=== PATIENT | female | born 1955 | race Caucasian/White ===

== ENCOUNTER 2017-06-02 09:53 | Emergency (ER) | payer OTHER ==
[~2017-06-02] VITALS: Ht 152.4 cm; Wt 108.9 kg
[~2017-06-02 09:53] MED LIST: ALBUTEROL2.5 MG/3 M IH; AMARIL; AMARYL; AMLODIPINE BESYL5 MG; CLARITIN PO; GEMFIBROZIL600 MG; GLIMEPIRIDE4 MG; HYZAAR 100-121 UDTAB PO; HYZAAR 100-251 UDTAB PO; LANTUS100 U/ML; NORVASC 5MG TAB PO; PAXIL20 MG PO; PRILOSEC20 MG; PROVENTIL HFA6.7 GM; SIMVASTATIN40 MG; SINGULAIR10 MG PO; SYNTHROID75 MCG; ZITHROMAX500 MG PO
[2017-06-02] MEDS ORDERED: IPRAT-ALBUT 0.5-3 ML IH (12:42)
[2017-06-02] MEDS ORDERED: PROMETH-CODEIN 65 ML PO (12:42)
[2017-06-02] MEDS ORDERED: BUDESONIDE0.5 MG/2 M IH (12:42)
[2017-06-02] MEDS ORDERED: ZITHROMAX200 MG PO (12:42)
[2017-06-02] MEDS ORDERED: MUCINEX DM ER1 EAC1 PO (12:42)
[2017-06-02] MEDS ORDERED: MEDROLPACK PO (12:42)
== END 2017-06-02 12:50 | disposition home or self-care (01) ==
LOC: ER 09:53
DX: J44.9 Chronic obstructive pulmonary disease, unspecified (principal)

== ENCOUNTER 2018-06-28 00:34 | Inpatient (IN) | payer OTHER ==
[~2018-06-28] VITALS: Ht 152.4 cm; Wt 111.1 kg
[~2018-06-28 00:34] MED LIST changes: +BUDESONIDE0.5 MG/2 M IH; +IPRAT-ALBUT 0.5-3 ML IH; +MEDROLPACK PO; +MUCINEX DM ER1 EAC1 PO; +PROMETH-CODEIN 65 ML PO; +ZITHROMAX200 MG PO
[2018-06-30] MEDS ORDERED: CLARITIN10 MG PO (09:02)
[2018-07-04] MEDS ORDERED: SYMBICORT 16010.2 GM IH (16:53)
[2018-07-04] MEDS ORDERED: MEDROL4 MG PO (16:53)
[2018-07-04] MEDS ORDERED: VENTOLIN HFA18 GM IH (16:55)
== END 2018-07-04 17:16 | disposition home or self-care (01) | DRG 202 ==
LOC: ER 00:34 → SURH 09:25 → SEC-K 09:25 → SURH 11:01 → MEDJ 07-04 16:43 → SURH 07-04 17:13
PROVIDERS: ADMIT Student in an Organized Health Care Education/Training Program
PROC: 8E0ZXY6 Isolation (ICD-10-PCS; principal; 2018-06-28)
PROC: 4A033R1 Measurement of Arterial Saturation, Peripheral, Percutaneous Approach (ICD-10-PCS; 2018-06-28)
PROC: 3E0F7GC Introduction of Other Therapeutic Substance into Respiratory Tract, Via Natural or Artificial Opening (ICD-10-PCS; 2018-06-28)
DX: J45.21 Mild intermittent asthma with (acute) exacerbation (principal); J44.1 Chronic obstructive pulmonary disease with (acute) exacerbation; J45.22 Mild intermittent asthma with status asthmaticus; J09.X2 Influenza due to identified novel influenza A virus with other respiratory manifestations; R09.02 Hypoxemia; E66.01 Morbid (severe) obesity due to excess calories; E03.8 Other specified hypothyroidism; E11.65 Type 2 diabetes mellitus with hyperglycemia; I10 Essential (primary) hypertension; I51.7 Cardiomegaly; E78.2 Mixed hyperlipidemia; I87.2 Venous insufficiency (chronic) (peripheral); E11.42 Type 2 diabetes mellitus with diabetic polyneuropathy; E11.29 Type 2 diabetes mellitus with other diabetic kidney complication; R80.8 Other proteinuria

== ENCOUNTER 2019-01-02 10:23 | Outpatient (CLI) | payer OTHER ==
[~2019-01-02 10:23] MED LIST changes: +CLARITIN10 MG PO; +MEDROL4 MG PO; +SYMBICORT 16010.2 GM IH; +VENTOLIN HFA18 GM IH
== END 2019-01-02 10:34 | disposition home or self-care (01) ==
LOC: NUCLEAR 10:23
DX: I73.9 Peripheral vascular disease, unspecified (principal); I10 Essential (primary) hypertension; I87.2 Venous insufficiency (chronic) (peripheral); E89.2 Postprocedural hypoparathyroidism

== ENCOUNTER 2019-01-05 09:24 | Outpatient (CLI) | payer OTHER | END 2019-01-05 09:40 | disposition home or self-care (01) | LOC: NUCLEAR 09:24 | DX: I87.2 Venous insufficiency (chronic) (peripheral) (principal); I70.208 Unspecified atherosclerosis of native arteries of extremities, other extremity ==

== ENCOUNTER 2019-04-16 12:23 | Inpatient (IN) | payer OTHER ==
[~2019-04-16] VITALS: Ht 149.9 cm; Wt 111.1 kg
--- NOTE | 2019-04-16 12:37 | NUR ---
SE RECIBE AL PACIENTE ALERTA Y ORIENTADO EN MAI ÁNGEL ESFERAS. PACIENTE REFIERE QUE VIENE POR ASTHMA.
--- NOTE | 2019-04-16 13:46 | NUR ---
SE RECIBE PTE FEMENINA DE 64 YRS ALERTA CONCIENTE Y TRANQUILA EN COMPANIA DE FAMILIAR. PTE ES EVALUADA POR EL DR. BALDWIN QUIEN ORDENA TRATMIENTO LA CUAL SE EJECUTA POR MS DELFINA DICKENS. SE OBSERVA POR CAMBIOS.
[2019-04-23] MEDS ORDERED: LORATADINE10 MG PO (13:49)
[2019-04-23] MEDS ORDERED: LOSARTAN-HCTZ1 EACH PO (13:50)
[2019-04-23] MEDS ORDERED: XOPENEX CO1.25 MG/0. IH (13:50)
[2019-04-23] MEDS ORDERED: AMLODIPINE BESYL5 MG PO (13:50)
[2019-04-23] MEDS ORDERED: BENZONATATE200 M1 PO (13:51)
[2019-04-23] MEDS ORDERED: MONTELUKAST SOD10 MG PO (13:51)
[2019-04-23] MEDS ORDERED: SIMVASTATIN20 MG PO (13:51)
[2019-04-23] MEDS ORDERED: MUCINEX600 MG PO (13:52)
[2019-04-23] MEDS ORDERED: MEDROLPACK PO (13:52)
== END 2019-04-23 15:31 | disposition home or self-care (01) | DRG 194 ==
LOC: ER 12:23 → MEDJ 16:27
PROVIDERS: ADMIT Internal Medicine
PROC: 3E0F7GC Introduction of Other Therapeutic Substance into Respiratory Tract, Via Natural or Artificial Opening (ICD-10-PCS; 2019-04-16)
PROC: 4A033R1 Measurement of Arterial Saturation, Peripheral, Percutaneous Approach (ICD-10-PCS; 2019-04-16)
PROC: BB24ZZZ Computerized Tomography (CT Scan) of Bilateral Lungs (ICD-10-PCS; principal; 2019-04-17)
DX: J18.1 Lobar pneumonia, unspecified organism (principal); J44.1 Chronic obstructive pulmonary disease with (acute) exacerbation; J45.41 Moderate persistent asthma with (acute) exacerbation; Z99.11 Dependence on respirator [ventilator] status; I70.0 Atherosclerosis of aorta; J31.0 Chronic rhinitis; E66.01 Morbid (severe) obesity due to excess calories; E03.8 Other specified hypothyroidism; G47.33 Obstructive sleep apnea (adult) (pediatric); E11.40 Type 2 diabetes mellitus with diabetic neuropathy, unspecified; E11.65 Type 2 diabetes mellitus with hyperglycemia; Z79.4 Long term (current) use of insulin

== ENCOUNTER 2019-06-09 14:57 | Inpatient (IN) | payer OTHER ==
[~2019-06-09] VITALS: Ht 149.9 cm; Wt 111.1 kg
[~2019-06-09 14:57] MED LIST changes: +AMLODIPINE BESYL5 MG PO; +BENZONATATE200 M1 PO; +LORATADINE10 MG PO; +LOSARTAN-HCTZ1 EACH PO; +MONTELUKAST SOD10 MG PO; +MUCINEX600 MG PO; +SIMVASTATIN20 MG PO; +XOPENEX CO1.25 MG/0. IH
--- NOTE | 2019-06-09 15:25 | NUR ---
PTE ALERTA Y ORIENTADA X 3 ESFERAS QUIEN REFIERE DESDE EL PHONG COMENZO CON DOLOR DE GARGANTA Y SIENTE QUE VA A COMENZAR EL ASMA,REFIERE ESTUVO HOSPITALIZADA EN ENERO POR NEUMONIA.PTE HABLANDO EN ORACIONES COMPLETAS,SATURANDO 91%,SE UBICA EN AREA DE AU.
--- NOTE | 2019-06-09 16:49 | NUR ---
PACIENTE FEMINA ALERTA Y ORIENTADA, SE RE ORIENTA SOBRE EL TRATAMIENTO ORDENADO POR EL MEDICO, REFIERE ENETENDER. BAJO MEDIDAS ASEPTICAS SE CANALIZA EN MANO LT CON ANGIO #22 AIXA DE EDEMA Y ERITEMA. SE ANDREW MUESTRAS DE [facility]ATOR[facility] SHERINE ORDENADO Y SE ADMINISTRAN MEDICAMENTOS SHERINE ORDENADOS. ORDENES TOMADAS POR RN: MARGUERITE Y EJECUTADAS POR RN. DIXON.
[2019-06-10] MEDS ORDERED: LEVO-T88 MCG (08:05)
[2019-06-10] MEDS ORDERED: HYDROCHLOROTHIA25 MG (08:05)
[2019-06-12] MEDS ORDERED: SYMBICORT 16010.2 GM IH (14:02)
[2019-06-12] MEDS ORDERED: VENTOLIN HFA18 GM IH (14:03)
[2019-06-12] MEDS ORDERED: MORGIDOX100 MG PO (14:04)
== END 2019-06-12 14:38 | disposition home or self-care (01) | DRG 190 ==
LOC: ER 14:57 → MEDJ 19:56 → SEC-K 19:56 → MEDJ 06-10 00:35
PROVIDERS: ADMIT Internal Medicine
PROC: 3E0F7GC Introduction of Other Therapeutic Substance into Respiratory Tract, Via Natural or Artificial Opening (ICD-10-PCS; 2019-06-09)
PROC: 4A033R1 Measurement of Arterial Saturation, Peripheral, Percutaneous Approach (ICD-10-PCS; 2019-06-09)
PROC: BB24ZZZ Computerized Tomography (CT Scan) of Bilateral Lungs (ICD-10-PCS; principal; 2019-06-10)
DX: J44.1 Chronic obstructive pulmonary disease with (acute) exacerbation (principal); J18.1 Lobar pneumonia, unspecified organism; J45.22 Mild intermittent asthma with status asthmaticus; J98.11 Atelectasis; E66.01 Morbid (severe) obesity due to excess calories; R31.0 Gross hematuria; K21.9 Gastro-esophageal reflux disease without esophagitis; I10 Essential (primary) hypertension; E11.65 Type 2 diabetes mellitus with hyperglycemia; Z79.4 Long term (current) use of insulin

== ENCOUNTER 2024-09-14 15:55 | Emergency (ER) | payer OTHER ==
[~2024-09-14] VITALS: Ht 149.9 cm; Wt 99.8 kg
[~2024-09-14 15:55] MED LIST changes: +HYDROCHLOROTHIA25 MG; +LEVO-T88 MCG; +MORGIDOX100 MG PO
[2024-09-14] MEDS ORDERED: NORVASC5 MG PO (16:29)
[2024-09-14] MEDS ORDERED: ZESTORETIC 20-1 EAC1 PO (16:30)
[2024-09-14] MEDS ORDERED: HYDROCODONE/CHLORPHEN P-STIREX 5 ML ML PO STA (18:58)
[2024-09-14 19:37] LABS: BASO % 0.9 % (0.1-1.2); EOS # 0.02 (0.04-0.54); EOS % 0.2 % (0.7-7.0); HEMATOCRIT 43.1 % (34.1-44.9); HEMOGLOBIN 13.8 g/dL (11.2-15.7); LYMPH # 1.86 (1.18-3.74); MEAN CORPUSCULAR HEMOGLOBIN 25.7 pg (25.6-32.2); MONO % 11.1 % (4.7-12.5); NEUT # 8.31 (1.56-6.13); NEUT % 71.2 % (34.0-71.1); PLATELET COUNT 337 K/uL (163-369); RED BLOOD COUNT 5.37 M/uL (3.93-5.22)
[2024-09-14 20:19] LABS: COVID-19 AG NEGATIVE (NEGATIVE)
[2024-09-14 20:34] LABS: INFLUENZA A AG NEGATIVE (NEGATIVE); INFLUENZA B AG NEGATIVE (NEGATIVE)
== END 2024-09-14 21:35 | disposition home or self-care (01) ==
LOC: ER 15:55
DX: J06.9 Acute upper respiratory infection, unspecified (principal); Z91.013 Allergy to seafood; I10 Essential (primary) hypertension; Z20.822 Contact with and (suspected) exposure to COVID-19